=== PATIENT | male | born 1935 | race Caucasian/White ===

== ENCOUNTER 2021-04-22 17:10 | Emergency (ER) | payer MEDICARE ==
[~2021-04-22] VITALS: Ht 165.1 cm; Wt 65.8 kg
[~2021-04-22 17:10] MED LIST: AMLO2.5T3 PO; ASPI-546 PO; ATEN50TA2 PO; CIPR-249 PO; LISI2.5T9 PO; POLYOPD OU; PRAV20TA2 PO; ZYLO300T6 PO
[2021-04-22 17:37] LABS: BASO # 0.1 10^3/uL (0.0-0.2); BASO % 0.8 % (0.0-1.0); EOS # 0.2 10^3/uL (0.0-0.5); EOS % 2.3 % (0.0-3.0); HEMATOCRIT 36.4 % (42.0-52.0); HEMOGLOBIN 11.3 g/dl (13.5-17.5); LYMPH # 1.4 10^3/uL (1.5-5.0); LYMPH % 20.4 % (24.0-44.0); MEAN CORPUSCULAR HEMOGLOBIN 27.4 pg (27.0-33.0); MEAN CORPUSCULAR VOLUME 88.3 fl (80.0-96.0); MONO # 0.6 10^3/uL (0.0-0.8); MONO % 8.3 % (2.0-8.0); NEUTROPHILS # 4.5 10^3/uL (1.5-8.5); NEUTROPHILS % 67.7 % (36.0-66.0); PLATELET COUNT, AUTOMATED 246 10^3/uL (150-450); RED BLOOD COUNT 4.12 10^6/uL (4.30-6.10); WHITE BLOOD COUNT 6.6 10^3/uL (4.0-10.0)
[2021-04-22 17:47] LABS: PARTIAL THROMBOPLASTIN TIME 34.1 SECONDS (25.9-37.0)
--- NOTE | 2021-04-22 17:47 | REP ---
INDICATION: CVA COMPARISON: None. TECHNIQUE: Portable AP view of the chest FINDINGS: The mediastinum and cardiac silhouette are within normal limits for portable technique. The lung keith demonstrate chronic interstitial changes without acute consolidation, effusion, or pneumothorax. Skeletal structures are intact. IMPRESSION: No acute cardiopulmonary process appreciated. <Electronically signed by Livan Fortune > 04/22/21 [id number]
--- NOTE | 2021-04-22 17:59 | REPVR ---
PROCEDURE INFORMATION: Exam: CT Head Without Contrast Exam date and time: 04/22/2021 5:26 PM Age: 85 years old Clinical indication: Altered mental status/memory loss; Additional info: CVA - nursing interventions must not delay CT TECHNIQUE: Imaging protocol: Computed tomography of the head without contrast. Radiation optimization: All CT scans at this facility use at least one of these dose optimization techniques: automated exposure control; mA and/or kV adjustment per patient size (includes targeted exams where dose is matched to clinical indication); or iterative reconstruction. Other technique: STROKE PROTOCOL was implemented. COMPARISON: CT ANGIO HEAD 04/22/2021 5:24:58 PM FINDINGS: Brain: The brain demonstrates diffuse volume loss. There is white matter hypodensity most consistent with chronic small vessel ischemic change. No visible evolving territorial infarct. No hemorrhage. 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 Cerebral ventricles: The ventricles are enlarged in keeping with volume loss. Paranasal sinuses: Visualized sinuses are unremarkable. No fluid levels. Mastoid air cells: Visualized mastoid air cells are well aerated. 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 Bones/joints: Unremarkable. No acute fracture. Soft tissues: Unremarkable. IMPRESSION: 1. No acute intracranial abnormality seen. 2. 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 ASSESSMENT: ASPECTS ([place] Stroke Program Early CT Score) is 10. Electronically signed by: Mariana Nicole On 04/22/2021 17:58:40 PM
[2021-04-22] MEDS ORDERED: LABETALOL 100MG/20ML VIAL IV STA (18:01)
[2021-04-22 18:06] VITALS: BP 190/84
[2021-04-22 18:07] LABS: CK-MB VALUE MASS 1.9 NG/ML (<3.6); MB/CK RELATIVE INDEX 2.04 (< OR =4); TROPONIN I 0.12 NG/ML (< 0.10)
--- NOTE | 2021-04-22 18:08 | REPVR ---
PROCEDURE INFORMATION: Exam: CT Angiography Neck With Contrast Exam date and time: 04/22/2021 5:26 PM Age: 85 years old Clinical indication: Speech disturbance; Slurred speech; Additional info: Confusion, difficulty speaking, facial droop TECHNIQUE: Imaging protocol: Computed tomography angiography of the neck with contrast. 3D rendering (Not supervised by radiologist): MIP and/or 3D reconstructed images were created by the technologist. Radiation optimization: All CT scans at this facility use at least one of these dose optimization techniques: automated exposure control; mA and/or kV adjustment per patient size (includes targeted exams where dose is matched to clinical indication); or iterative reconstruction. Contrast material: ISOVUE 370; Contrast volume: 100 ml; Contrast route: INTRAVENOUS (IV); COMPARISON: No relevant prior studies available. FINDINGS: Right common carotid artery: No stenosis. No dissection or occlusion. Right internal carotid artery: Proximal right ICA calcified atherosclerosis does not contribute to stenosis. Right external carotid artery: Atherosclerosis at the origin of the right ECA causes mild stenosis. Left common carotid artery: No stenosis. No dissection or occlusion. Left internal carotid artery: Proximal left ICA demonstrates an intraluminal flap consistent with dissection, image is 58 through 62 of series 507. This is also appreciated sagittal image 49 of series 509. Moderate, approximate 60% narrowing of the true lumen. Left external carotid artery: No occlusion or stenosis of the origin. Right vertebral artery: No stenosis. No dissection or occlusion. Left vertebral artery: No stenosis. No dissection or occlusion. Soft tissues: Normal. No significant soft tissue swelling. 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 Mild cervical dextroconvex scoliosis. Lungs: The lung apices demonstrate dependent atelectasis. 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 There is moderate, approximate 60% narrowing of the true lumen. 0% right ICA stenosis. The vertebral arteries are patent without stenoses. REFERENCES: NASCET CRITERIA. The degree of internal carotid artery stenosis is based on NASCET criteria. Normal is no stenosis. Mild is less than 50% stenosis. Moderate is 50-69% stenosis. Severe is 70% to 99% stenosis. Total occlusion is no detectable patent lumen. Electronically signed by: Mariana Nicole On 04/22/2021 18:07:53 PM
--- NOTE | 2021-04-22 18:19 | REPVR ---
PROCEDURE INFORMATION: Exam: CT Angiography Head With Contrast, Arteriography Exam date and time: 04/22/2021 5:26 PM Age: 85 years old Clinical indication: Speech disturbance; Additional info: Confusion, difficulty speaking, facial droop TECHNIQUE: Imaging protocol: Computed tomography angiography of the head with contrast. Exam focused on the arteries. 3D rendering (Not supervised by radiologist): MIP and/or 3D reconstructed images were created by the technologist. Radiation optimization: All CT scans at this facility use at least one of these dose optimization techniques: automated exposure control; mA and/or kV adjustment per patient size (includes targeted exams where dose is matched to clinical indication); or iterative reconstruction. Contrast material: ISOVUE 370; Contrast volume: 100 ml; Contrast route: INTRAVENOUS (IV); COMPARISON: No relevant prior studies available. FINDINGS: ANTERIOR CIRCULATION: Right internal carotid artery: The right ICA demonstrates calcified atherosclerosis. Stenosis is severe in the paraclinoid segment. No aneurysm. Right middle cerebral artery: Unremarkable. No occlusion or significant stenosis. No aneurysm. Right anterior cerebral artery: Unremarkable. No occlusion or significant stenosis. No aneurysm. Left internal carotid artery: The left ICA demonstrates calcified atherosclerosis. Stenoses are moderate in the distal cavernous and paraclinoid segments. There is a 1.9 x 1.4 x 1.6 cm laterally directed aneurysm arising from the supraclinoid left ICA, image 22 series 501, image 57 series 505. Left middle cerebral artery: Unremarkable. No occlusion or significant stenosis. No aneurysm. Left anterior cerebral artery: Unremarkable. No occlusion or significant stenosis. No aneurysm. POSTERIOR CIRCULATION: Right vertebral artery: Unremarkable. No occlusion or significant stenosis. No aneurysm. Left vertebral artery: Unremarkable. No occlusion or significant stenosis. No aneurysm. Basilar artery: Unremarkable. No occlusion or significant stenosis. No aneurysm. Right posterior cerebral artery: Unremarkable. No occlusion or significant stenosis. No aneurysm. Left posterior cerebral artery: The left posterior cerebral artery demonstrates a short segment critical stenosis in the P2 segment. Brain: No definite mass, mass effect, or midline shift. Cerebral ventricles: No ventriculomegaly. Bones/joints: Unremarkable. No acute fracture. Soft tissues: Unremarkable. IMPRESSION: 1. No proximal intracranial arterial occlusion seen. 2. Large left supraclinoid ICA aneurysm. 3. There is a critical short-segment stenosis of the left [employer]ER in the P2 segment. Electronically signed by: Mariana Nicole On 04/22/2021 18:18:32 PM
[2021-04-22] MEDS ORDERED: ALTEPLASE 100MG VIAL IV ONE (18:45)
[2021-04-22] MEDS ORDERED: ALTEPLASE RECOMBINANT IV ONE (18:45)
[2021-04-22] MEDS ORDERED: niCARdipine IV 40 MG in IV 1 EA IV SCH (18:45)
[2021-04-22 19:12] LABS: RSV AMPLIFICATION NEGATIVE (NEGATIVE)
[2021-04-22 19:20] LABS: INR 0.96; PROTHROMBIN TIME 13.1 SECONDS (12.7-14.5)
[2021-04-22 19:34] VITALS: BP 133/78
[2021-04-22] MEDS ORDERED: SODIUM CHLORIDE 0.9% 50 ML IV ONE (19:45)
--- NOTE | 2021-04-22 19:48 | ECGEPIP ---
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
== END 2021-04-22 19:51 | disposition short-term general hospital (02) ==
LOC: M ED 17:10
DX: I63.212 Cerebral infarction due to unspecified occlusion or stenosis of left vertebral artery (principal); I72.0 Aneurysm of carotid artery; R94.31 Abnormal electrocardiogram [ECG] [EKG]; I10 Essential (primary) hypertension; Z85.46 Personal history of malignant neoplasm of prostate; Z79.899 Other long term (current) drug therapy
CPT/HCPCS: 70450; 70496; 70498; 71045; 80047; 82550; 82553; 84484; 85025; 85610; 85730; 87631; 93005; 93041; 94760; 96365; 96375; 99291; J2997